=== PATIENT | male | born 1960 | race Caucasian/White ===

== ENCOUNTER → 2018-01-26 | Day surgery (SDC) | payer BC ==
[2018-01-24 15:49] LABS: BASOPHILS # (AUTO) 0.1 (0.0-0.1); BASOPHILS % 0.5 % (0.0-1.0); EOSINOPHILS # (AUTO) 0.3 (0.0-0.4); EOSINOPHILS % 1.9 % (0.0-6.0); HEMATOCRIT 46.6 % (38.2-49.6); LYMPHOCYTES # (AUTO) 6.2 (1.0-3.2); LYMPHOCYTES % 38.6 % (18.0-39.1); MEAN CORPUSCULAR HEMOGLOBIN 29.2 pg (28-32); MEAN CORPUSCULAR HGB CONC 34.3 g/dL (31-35); MONOCYTES # (AUTO) 1.4 (0.2-0.8); MONOCYTES % 8.5 % (4.4-11.3); NEUTROPHILS # (AUTO) 8.1 (2.1-6.9); NEUTROPHILS % 50.2 % (38.7-80.0); PLATELET COUNT 318 x10e3/uL (140-360); RED BLOOD COUNT 5.48 x10e6/uL (4.3-5.7); RED CELL DISTRIBUTION WIDTH 13.2 % (11.7-14.4)
[2018-01-24 16:47] LABS: LYMPHOCYTES % (MANUAL) 30 % (19-48); MONOCYTES % (MANUAL) 2 % (3.4-9.0); NEUTROPHILS % (MANUAL) 63 % (40-74); PLATELET ESTIMATE ADEQUATE; PLATELET MORPHOLOGY COMMENT NORMAL; RBC MORPHOLOGY COMMENT NORMAL
[~2018-01-26] MED LIST: ALBUTEROL SULFATE HFA 8GM INHALATION AEROSOL INH ONE; ALBUTEROL0.63 MG/3; ASPIRIN81 MG; ATORVASTATIN CA20 MG PO; BENZOCAINE/TETRACAINE/BUTAMBEN AERO SPRAY 56 GM CAN ONE; BRILINTA90 MG; FENTANYL CITRATE/PF 100MCG/2 ML INJ ONE; GEMFIBROZIL600 MG; HYOSCYAMINE SULFATE 0.5 MG/ML AMP ONE; IPRATROPIU0.2 MG/1 M NEB; KETAMINE HCL INJ 50 MG/ML 10 ML VIAL ONE; LIDOCAINE HCL 2% LOCAL INJ 5 ML SDV VIAL INJ ONE; LISINOPRIL-HCT1 EAC2; METOCLOPRAMIDE HCL 10 MG/2ML VIAL ONE; MIDAZOLAM HCL 2 MG/2 ML VIAL ONE; MUCINEX DM ER1 EACH PO; OMEPRAZOLE40 MG; PHENYLEPHRINE HCL 1% 10 MG/ML VIAL ONE; PREDNISONE20 MG PO; PROPOFOL IV EMULSION 10 MG/ML 50 ML VIAL ONE; SIMETHICONE 40 MG/0.6 ML BTL ONE; SYMBICORT 16010.2 GM
--- NOTE | 2018-01-26 07:57 | Diagnostic Imaging Report ---
PROCEDURE: Frontal and lateral views of the chest. COMPARISON: None. INDICATIONS: PREOPERATIVE CHEST XRAY FOR COLONOSCOPY/EGD FINDINGS: Lines/tubes: None. Lungs: Low lung volumes, which may account for mid interstitial opacities, left greater than right. No evidence of pneumonia. Pleura: There is no pleural effusion or pneumothorax. Heart and mediastinum: The cardiomediastinal silhouette is unremarkable. Bones: No acute bony abnormality. IMPRESSION: Mild interstitial opacities which likely reflect low lung volumes. Mild interstitial edema is possible in the appropriate clinical context. No evidence of pneumonia. Dictated by: ANGELICA ARTEAGA M.D. on 01/26/2018 at 8:02 Electronically approved by: ANGELICA ARTEAGA M.D. on 01/26/2018 at 8:02
--- NOTE | 2018-01-26 12:24 | Operative Report ---
DATE OF PROCEDURE: January 26, 2018 REFERRING PHYSICIAN: Dr. Demarco Lawton. PROCEDURES PERFORMED: 1. Esophagogastroduodenoscopy with esophageal dilatation biopsies. 2. Colonoscopy with polypectomy. INDICATIONS FOR ESOPHAGOGASTRODUODENOSCOPY: Dysphagia, retrosternal chest pain. INDICATIONS FOR COLONOSCOPY: Colorectal cancer screening, personal history of colon polyps. MEDICATION: Patient was done under MAC. Please see anesthesiologist's note. PROCEDURE: With patient in the left lateral decubitus position, the flexible fiberoptic Olympus gastroscope was introduced into the esophagus under direct visualization without any difficulty. There was some patchy erythema noted in the distal esophagus. The esophagus was dilated to a size 52-Slovenian Brannon. The scope was then advanced with ease into the stomach, and mucosa overlying the antrum and the body revealed some patchy erythema and mild to moderate edema, and biopsies were obtained and sent to stain for H. pylori. The pylorus was of normal contour and shape, was intubated with ease, and the scope was advanced all the way to the 2nd portion of the duodenum. The scope was then withdrawn slowly. Mucosa overlying the proximal 2nd portion and the duodenal bulb appeared to be within normal limits. The scope was then withdrawn back into the stomach and retroflexed, and the mucosa overlying the fundus and the cardia appeared to be within normal limits. The scope was then straightened out. The stomach was decompressed. The scope was subsequently withdrawn. Patient tolerated the procedure well. IMPRESSION: 1. Distal esophagitis, mild. 2. Esophagus dilated to a size 52-Slovenian Brannon. 3. Gastritis biopsied. Biopsies sent to stain for H. pylori. PLAN: Follow up histology. Increase omeprazole to 40 mg 1 p.o. a.c. b.i.d. Patient was then turned around and after adequate lubrication of the anal canal, a flexible fiberoptic Olympus colonoscope was inserted into the rectum with ease and advanced all the way to the cecum. It was then withdrawn slowly. One polyp was hot biopsied from the cecum. The ascending colon appeared to be within normal limits. Five polyps were hot biopsied and three polyps were snared from the transverse colon. Two polyps were snared, two polyps were hot biopsied from the descending colon. One polyp was snared, six polyps were hot biopsied from the sigmoid colon. Six polyps were hot biopsied from the rectum. The scope was then retroflexed into the distal rectum and moderate-sized internal hemorrhoids were noted, none of which was actively bleeding. The scope was then straightened out. It was subsequently withdrawn. Patient tolerated the procedure well. IMPRESSION: 1. Cecal polyp hot biopsied. 2. Transverse colon polyps, 3 snared and hot biopsied x5. 3. Descending colon polyps, 2 snared and 2 hot biopsied. 4. Sigmoid colon polyps, 1 snared and 6 hot biopsied. 5. Rectal polyps, 6 hot biopsied. 6. Internal hemorrhoids, none actively bleeding. PLAN: Follow up histology. Patient will need a colonoscopy in six months to a year as a total of 26 polyps were removed. Job#: [id number] EV cc:DEMARCO LAWTON M.D.
== END | disposition home or self-care (01) ==
LOC: OR 06:17
PROVIDERS: ATTEND Internal Medicine Gastroenterology
DX: Z12.11 Encounter for screening for malignant neoplasm of colon (principal); D12.3 Benign neoplasm of transverse colon; D12.4 Benign neoplasm of descending colon; D12.5 Benign neoplasm of sigmoid colon; D12.8 Benign neoplasm of rectum; K29.70 Gastritis, unspecified, without bleeding; K20.9 Esophagitis, unspecified; K59.00 Constipation, unspecified; K64.8 Other hemorrhoids; J44.9 Chronic obstructive pulmonary disease, unspecified; G47.33 Obstructive sleep apnea (adult) (pediatric); I25.10 Atherosclerotic heart disease of native coronary artery without angina pectoris; I10 Essential (primary) hypertension; F17.210 Nicotine dependence, cigarettes, uncomplicated; Z01.810 Encounter for preprocedural cardiovascular examination; Z01.812 Encounter for preprocedural laboratory examination; Z79.82 Long term (current) use of aspirin; Z68.41 Body mass index [BMI] 40.0-44.9, adult; Z95.5 Presence of coronary angioplasty implant and graft; Z80.0 Family history of malignant neoplasm of digestive organs
CPT/HCPCS: 36415; 43239; 43450; 45384; 45385; 71046; 85025; 93005; J1980; J2001; J2250; J2370; J2765; 45378

== ENCOUNTER 2018-02-08 18:28 | Inpatient (IN) | payer BC ==
[~2018-02-08] VITALS: Ht 172.7 cm; Wt 115.4 kg
[2018-02-08] MEDS ORDERED: PREDNISONE20 MG PO (19:23)
[2018-02-08 19:35] LABS: BASOPHILS # (AUTO) 0.1 (0.0-0.1); BASOPHILS % 0.4 % (0.0-1.0); EOSINOPHILS # (AUTO) 0.2 (0.0-0.4); EOSINOPHILS % 1.6 % (0.0-6.0); HEMATOCRIT 46.4 % (38.2-49.6); LYMPHOCYTES # (AUTO) 6.1 (1.0-3.2); LYMPHOCYTES % 39.8 % (18.0-39.1); MEAN CORPUSCULAR HGB CONC 34.5 g/dL (31-35); MEAN CORPUSCULAR VOLUME 84.2 fL (81-99); MONOCYTES # (AUTO) 1.2 (0.2-0.8); NEUTROPHILS # (AUTO) 7.6 (2.1-6.9); NEUTROPHILS % 49.8 % (38.7-80.0); PLATELET COUNT 419 x10e3/uL (140-360); RED BLOOD COUNT 5.51 x10e6/uL (4.3-5.7)
[2018-02-08 19:43] LABS: INR 0.98; PROTHROMBIN TIME 12.2 seconds (11.9-14.5)
[2018-02-08 19:44] LABS: PARTIAL THROMBOPLASTIN TIME 24.5 seconds (23.8-35.5)
[2018-02-08 19:54] LABS: ALANINE AMINOTRANSFERASE 21 IU/L (0-55); ALBUMIN 3.9 g/dL (3.5-5.0); ALBUMIN/GLOBULIN RATIO 1.4 (0.8-2.0); ALKALINE PHOSPHATASE 84 IU/L (40-150); AMYLASE 38 U/L (25-125); ANION GAP 17.1 mmol/L (8-16); BLOOD UREA NITROGEN 20 mg/dL (7-26); BUN/CREATININE RATIO 21 (6-25); CALCIUM 9.8 mg/dL (8.4-10.2); CARBON DIOXIDE 19 mmol/L (22-29); CHLORIDE 106 mmol/L (98-107); CREATINE KINASE 70 IU/L (30-200); CREATININE, SERUM 0.96 mg/dL (0.72-1.25); EST GLOMERULAR FILTRATION RATE > 60 ML/MIN (60-); GLUCOSE 218 mg/dL (74-118); LIPASE 25 U/L (8-78); POTASSIUM 4.1 mmol/L (3.5-5.1); SODIUM 138 mmol/L (136-145)
[2018-02-08] MEDS ORDERED: ASPIRIN 81 MG CHEW TAB PO ONE (20:15)
[2018-02-08] MEDS ORDERED: ONDANSETRON HCL INJ 2 MG/ML VIAL IV PRN (20:15)
[2018-02-08] MEDS ORDERED: LEVOFLOXACIN 500MG/D5W 100ML 100 ML IV ONE (20:29)
[2018-02-08] MEDS ORDERED: SODIUM CHLORIDE 0.9% 1000ML 1,000 ML ONE (20:29)
[2018-02-08] MEDS: SODIUM CHLORIDE 0.9% 1000ML 1,000 ML IV SCH (20:44)
[2018-02-08] MEDS: LEVOFLOXACIN 500MG/D5W 100ML IV SCH (20:44)
[2018-02-08] MEDS ORDERED: KETOROLAC TROMETHAMINE 30 MG/ML VIAL IV STA (21:07)
[2018-02-08] MEDS ORDERED: ACETAMINOPHEN/CODEINE 300MG - 30MG TAB PO PRN (21:15)
[2018-02-08 21:30] VITALS: BP 162/81
[2018-02-08 21:33] LABS: LYMPHOCYTES % (MANUAL) 23 % (19-48); MONOCYTES % (MANUAL) 3 % (3.4-9.0); NEUTROPHILS % (MANUAL) 67 % (40-74); PLATELET ESTIMATE SLIGHTLY INCREASED; PLATELET MORPHOLOGY COMMENT NORMAL; RBC MORPHOLOGY COMMENT NORMAL
[2018-02-09] VITALS (8 sets, daily range): BP systolic 126–167; BP diastolic 69–84
[2018-02-09] MEDS: METRONIDAZOLE 500MG/NS 100ML 100 ML IV SCH ×4 (00:34→17:55)
[2018-02-09 05:00] LABS: BASOPHILS # (AUTO) 0.1 (0.0-0.1); BASOPHILS % 0.6 % (0.0-1.0); EOSINOPHILS # (AUTO) 0.2 (0.0-0.4); EOSINOPHILS % 1.7 % (0.0-6.0); HEMATOCRIT 42.9 % (38.2-49.6); HEMOGLOBIN 14.8 g/dL (14.0-18.0); LYMPHOCYTES # (AUTO) 6.1 (1.0-3.2); LYMPHOCYTES % 44.7 % (18.0-39.1); MEAN CORPUSCULAR HEMOGLOBIN 29.4 pg (28-32); MEAN CORPUSCULAR HGB CONC 34.5 g/dL (31-35); MEAN CORPUSCULAR VOLUME 85.1 fL (81-99); MONOCYTES # (AUTO) 1.3 (0.2-0.8); MONOCYTES % 9.7 % (4.4-11.3); NEUTROPHILS # (AUTO) 5.8 (2.1-6.9); NEUTROPHILS % 42.9 % (38.7-80.0); PLATELET COUNT 322 x10e3/uL (140-360); RED BLOOD COUNT 5.04 x10e6/uL (4.3-5.7); RED CELL DISTRIBUTION WIDTH 13.2 % (11.7-14.4)
[2018-02-09 05:31] LABS: ALANINE AMINOTRANSFERASE 17 IU/L (0-55); ALBUMIN 3.3 g/dL (3.5-5.0); ALBUMIN/GLOBULIN RATIO 1.4 (0.8-2.0); ALKALINE PHOSPHATASE 72 IU/L (40-150); ANION GAP 13.2 mmol/L (8-16); BLOOD UREA NITROGEN 20 mg/dL (7-26); BUN/CREATININE RATIO 27 (6-25); CALCIUM 9.2 mg/dL (8.4-10.2); CARBON DIOXIDE 22 mmol/L (22-29); CHLORIDE 106 mmol/L (98-107); CREATININE, SERUM 0.74 mg/dL (0.72-1.25); EST GLOMERULAR FILTRATION RATE > 60 ML/MIN (60-); GLUCOSE 134 mg/dL (74-118); POTASSIUM 4.2 mmol/L (3.5-5.1); SODIUM 137 mmol/L (136-145)
[2018-02-09 05:36] LABS: CREATINE KINASE MB 1.1 ng/mL (0-5.0)
[2018-02-09 06:43] LABS: EOSINOPHILS % (MANUAL) 5 % (0-7); LYMPHOCYTES % (MANUAL) 40 % (19-48); MONOCYTES % (MANUAL) 9 % (3.4-9.0); NEUTROPHILS % (MANUAL) 45 % (40-74)
[2018-02-09 06:44] LABS: PLATELET ESTIMATE ADEQUATE; PLATELET MORPHOLOGY COMMENT NORMAL; RBC MORPHOLOGY COMMENT NORMAL
[2018-02-09] MEDS: SODIUM CHLORIDE 0.9% 1000ML 1,000 ML IV SCH (09:27)
[2018-02-09 14:48] LABS: CREATINE KINASE MB 1.6 ng/mL (0-5.0)
[2018-02-09] MEDS: LEVOFLOXACIN 500MG/D5W 100ML IV SCH (20:27)
[2018-02-09] MEDS ORDERED: NITROGLYCERIN 0.4 MG SUBL SL PRN (21:00)
--- NOTE | 2018-02-09 23:06 | Consultation ---
DATE OF CONSULTATION: February 09, 2018 CARDIOLOGY CONSULTATION REASON FOR CONSULTATION: Chest pain. CHIEF COMPLAINT: Bright red blood per rectum. HISTORY OF PRESENT ILLNESS: Patient is a 57-year-old man with history of known coronary artery disease and chronic stable angina. Patient says that he has had exertional chest pain that feels like a pressure in his chest that is debilitating and relieved by rest for past several years. He follows a deck builder and has had several stents placed in the past, most recently about 2 or 3 months ago. Since then, he has seen his deck builder and has been told that his chest pains that are likely noncardiac in origin. Most recently, he underwent colonoscopy with polypectomy done by GI. He was recovering well from this up until yesterday when he used the restroom and noticed bright red blood per rectum. He has had several episodes throughout the day today up until this afternoon. Denies any dizziness or passing out. Denies any melena. Has never taken nitroglycerin for his chest pains, but does report that they improve with rest. Also has history of interstitial lung disease for which he used to follow a roentgenologist, but does not any longer as he says he was told that nothing can be done for this. REVIEW OF SYSTEMS: As above, otherwise negative. PAST MEDICAL HISTORY: 1. Coronary disease, status post multiple stents. 2. Colon polyps. 3. Gastroesophageal reflux disease. 4. Gastritis. 5. Interstitial lung disease. SOCIAL HISTORY: Patient does not smoke, drink alcohol or do drugs. FAMILY HISTORY: No family history of early CAD or sudden cardiac . OBJECTIVE: VITAL SIGNS: Temperature 97.3, pulse 71, respiratory rate 18, blood pressure 152/84, satting 96% on room air. GENERAL: Obese white man in no acute distress. CARDIOVASCULAR: Regular rate and rhythm. PMI nondisplaced. No murmurs, rubs or gallops. Palpable carotid pulses. Palpable radial pulses. Palpable pedal pulses. LUNGS: Clear to auscultation bilaterally. No respiratory distress. ABDOMEN: Soft, nontender, obese. No masses. NEURO AND PSYCH: Alert and oriented to person, place and time. Normal affect. LABORATORY DATA: Reviewed. Cardiac enzymes negative times 2. Elevated white count of 14 today. IMAGING DATA: Reviewed. Gallbladder scan possibly suggestive of chronic cholecystitis. Chest x-ray is normal. TELEMETRY: Shows normal sinus rhythm. EKG: Shows normal sinus rhythm, no acute ST-T changes. ASSESSMENT: 1. Typical chest pain. 2. Bright red blood per rectum. 3. Leukocytosis. 4. History of interstitial lung disease. 5. History of coronary artery disease, status post stents. PLAN: He has very typical, but chronic chest pains. Currently being managed medically by his outpatient deck builder. Will review images of his outpatient cardiac catheterization and discussed with patient if there is any possibility of any further interventions, given bright red blood per rectum, no plans for any invasive cardiovascular procedures during this hospitalization. Patient can follow up as an outpatient with his own deck builder or with our office if further procedures are planned at that time once GI bleeding improves. Thank you for the consult. Will continue to follow. Job#: [id number] WHITNEY
[2018-02-10] MEDS: SODIUM CHLORIDE 0.9% 1000ML 1,000 ML IV SCH (00:55)
[2018-02-10] MEDS: METRONIDAZOLE 500MG/NS 100ML 100 ML IV SCH ×3 (00:55→12:45)
[2018-02-10 00:56] VITALS: BP 193/93
[2018-02-10 05:02] LABS: BASOPHILS # (AUTO) 0.1 (0.0-0.1); BASOPHILS % 0.5 % (0.0-1.0); EOSINOPHILS # (AUTO) 0.2 (0.0-0.4); HEMATOCRIT 41.4 % (38.2-49.6); HEMOGLOBIN 14.1 g/dL (14.0-18.0); LYMPHOCYTES # (AUTO) 5.8 (1.0-3.2); LYMPHOCYTES % 47.2 % (18.0-39.1); MEAN CORPUSCULAR HEMOGLOBIN 28.8 pg (28-32); MEAN CORPUSCULAR HGB CONC 34.1 g/dL (31-35); MEAN CORPUSCULAR VOLUME 84.7 fL (81-99); MONOCYTES # (AUTO) 1.1 (0.2-0.8); MONOCYTES % 8.7 % (4.4-11.3); NEUTROPHILS % 41.2 % (38.7-80.0); PLATELET COUNT 269 x10e3/uL (140-360); RED BLOOD COUNT 4.89 x10e6/uL (4.3-5.7)
[2018-02-10 05:17] VITALS: BP 163/88
[2018-02-10 07:08] LABS: ANISOCYTOSIS SLIGHT; LYMPHOCYTES % (MANUAL) 46 % (19-48); MONOCYTES % (MANUAL) 9 % (3.4-9.0); NEUTROPHILS % (MANUAL) 39 % (40-74); PLATELET ESTIMATE ADEQUATE; PLATELET MORPHOLOGY COMMENT NORMAL; RBC MORPHOLOGY COMMENT NORMAL
[2018-02-10 08:00] VITALS: BP 155/90
--- NOTE | 2018-02-10 16:46 | Progress Note ---
DATE: February 10, 2018 CARDIOLOGY PROGRESS NOTE SUBJECTIVE: No major events overnight. No more bright red blood per rectum. He had an episode of chest pain overnight and took sublingual nitroglycerin without any changes other than getting a headache afterwards. REVIEW OF SYSTEMS: As above, otherwise negative. OBJECTIVE VITAL SIGNS: Temperature 97.1, pulse 74, respiratory rate 18, blood pressure 155/90, satting 96% on room air. GENERAL: A well-developed, obese white man in no acute distress. CARDIOVASCULAR: Regular rate and rhythm. No murmurs, rubs or gallops. PMI nondisplaced. Palpable carotid pulses. Palpable radial pulses. Palpable pedal pulses. LUNGS: Clear to auscultation bilaterally. No respiratory distress. ABDOMEN: Soft and nontender, obese. No masses. NEURO AND PSYCH: Alert and oriented to person, place and time. Normal affect. MEDICATIONS: Reviewed. LABORATORY DATA: Reviewed. IMAGING: Reviewed. ASSESSMENT 1. Chest pain. 2. Bright red blood per rectum. 3. Leukocytosis. 4. History of interstitial lung disease. 5. History of coronary artery disease, status post stenting. PLAN: He is typical for chronic chest pain. I reviewed his coronary angiogram performed at outside hospital earlier this year when he received PCI to proximal circumflex at that time. No significant residual disease seen on catheterization. Says his chest pain is chronic and he has had it for many years with no significant changes with his PCIs. He has already been ruled out for acute DE. I do not recommend any further workup at this time. Continue medical therapy and receptor control. He can follow up as an outpatient with his outside crystallographer. Recommend resuming his dual antiplatelet therapy now that his bleeding has stopped. Given that he has had a stent about 4 months ago this year, he should at least be on aspirin 81 mg daily. The patient is okay to be discharged from a cardiovascular standpoint. Thank you for this consult. We will continue to follow. Job#: [id number]
== END 2018-02-10 17:43 | disposition home or self-care (01) | DRG 378 ==
LOC: ER 18:28 → ERHOLD 20:13 → MED/SURG2 21:16
PROVIDERS: ADMIT Internal Medicine; ATTEND Internal Medicine
DX: K92.1 Melena (principal); J84.9 Interstitial pulmonary disease, unspecified; R07.89 Other chest pain; K29.70 Gastritis, unspecified, without bleeding; K21.9 Gastro-esophageal reflux disease without esophagitis; J98.9 Respiratory disorder, unspecified; K76.0 Fatty (change of) liver, not elsewhere classified; I25.10 Atherosclerotic heart disease of native coronary artery without angina pectoris; Z95.5 Presence of coronary angioplasty implant and graft; E66.9 Obesity, unspecified; Z68.38 Body mass index [BMI] 38.0-38.9, adult
CPT/HCPCS: 36415; 80053; 82150; 82270; 82550; 82553; 83690; 84484; 85025; 85610; 85730; 93005; 99284; J1885; J1956; J7030

== ENCOUNTER → 2018-02-08 | Outpatient (CLI) | payer BC ==
[~2018-02-08] MED LIST changes: -ALBUTEROL SULFATE HFA 8GM INHALATION AEROSOL INH ONE; -BENZOCAINE/TETRACAINE/BUTAMBEN AERO SPRAY 56 GM CAN ONE; -FENTANYL CITRATE/PF 100MCG/2 ML INJ ONE; -HYOSCYAMINE SULFATE 0.5 MG/ML AMP ONE; -KETAMINE HCL INJ 50 MG/ML 10 ML VIAL ONE; -LIDOCAINE HCL 2% LOCAL INJ 5 ML SDV VIAL INJ ONE; -METOCLOPRAMIDE HCL 10 MG/2ML VIAL ONE; -MIDAZOLAM HCL 2 MG/2 ML VIAL ONE; -PHENYLEPHRINE HCL 1% 10 MG/ML VIAL ONE; -PROPOFOL IV EMULSION 10 MG/ML 50 ML VIAL ONE; -SIMETHICONE 40 MG/0.6 ML BTL ONE
--- NOTE | 2018-02-08 11:59 | Diagnostic Imaging Report ---
PROCEDURE:US GALLBLADDER COMPARISON:None. INDICATIONS:EPIGASTRIC, RUQ PAIN TECHNIQUE: Wyatt-scale and color doppler transverse and longitudinal images of the right upper quadrant of the abdomen were obtained. FINDINGS: Limited examination due to patient body habitus Liver: 15.5 cm in right mid-clavicular line. Increased echogenicity. No masses. Main portal vein: 1.0 cm, normal, with normally directed flow Gallbladder: No stones, wall thickening, or pericholecystic fluid Common Bile Duct: 0.4 cm Sonographic Fernando's sign: Negative Right kidney: 13.9 cm. Normal echogenicity. No solid masses or hydronephrosis. 1.6 x 1.3 x 1.4 cm hypoechoic lesion in the right kidney. Pancreas: The pancreas is nonvisualized due to overlying bowel gas Inferior vena cava: Patent Aorta: Proximal portions of the aorta are not visualized due to overlying bowel gas Ascites: None in the right upper quadrant of the abdomen. CONCLUSION: No specific gallbladder abnormality. No cholelithiasis or acute cholecystitis. Diffuse hepatic steatosis. 1.6 cm hypoechoic lesion in the right kidney may represent a complex cyst. Recommend followup ultrasound in 6 months to ensure stability. Dictated by: Ziyad Ayers M.D. on 02/08/2018 at 12:04 Electronically approved by: Ziyad Ayers M.D. on 02/08/2018 at 12:04
--- NOTE | 2018-02-08 20:53 | Diagnostic Imaging Report ---
Hepatobiliary Scan with Gallbladder Ejection Fraction Clinical information: 57 M with epigastric pain that radiates to the back and shoulder. Technique: Following intravenous administration of 7.0 millicuries of Tc-99m mebrofenin, dynamic images of the abdomen in the anterior projection were obtained through 36 minutes. Sincalide (CCK analog) 2.6 micrograms was administered intravenously over 30 minutes with additional imaging for determination of gallbladder ejection fraction. Discussion: Perfusion of the liver is normal. Extraction of tracer by the liver parenchyma is normal. Tracer appears promptly within the biliary tract. The gallbladder begins to fill at 9 minutes post injection of tracer and fills adequately. Tracer is seen in the small bowel by during the sincalide infusion. There is no contractile response by the gallbladder to the pharmacologic dose of sincalide. No emptying of the gallbladder occurs during the 30 minute infusion. Impression: 1. Filling of the gallbladder excludes acute cystic duct obstruction/acute cholecystitis. 2. The gallbladder ejection fraction is undefined as there is no emptying of the gallbladder during the infusion of sincalide. This absence of a contractile response to sincalide supports the clinical diagnosis of chronic cholecystitis/gallbladder dyskinesia. Signed by: Dr. Bernadette King M.D. on 02/08/2018 8:50 PM
== END ==
LOC: US 10:16
PROVIDERS: ATTEND Internal Medicine Gastroenterology
DX: R10.13 Epigastric pain (principal); R10.11 Right upper quadrant pain
CPT/HCPCS: 76705; 78227; A9537

== ENCOUNTER → 2018-06-09 | Outpatient (CLI) | payer BC ==
--- NOTE | 2018-06-09 10:22 | Diagnostic Imaging Report ---
PROCEDURE: SMALL BOWEL SERIES COMPARISON: None. INDICATIONS: MULTIPLE COLON POLYPS, CONSTIPATION. R/O NEOPLASM FINDINGS: The patient was given barium to drink and sequential images of the abdomen were obtained through 90 minutes. Spot images of the small bowel and terminal ileum were then obtained. A preliminary KUB reveals a right common iliac artery stent. Small bowel motility and caliber are normal. There is no evidence of mass or mucosal abnormality. The terminal ileum is normal. Fluoroscopy time: 0.9 minutes Total dose: 57.723 mGy CONCLUSION: Normal small bowel follow-through. Neri Callahan D.O. Dictated by: Neri Callahan D.O. on 06/09/2018 at 10:33 Electronically approved by: Neri Callahan D.O. on 06/09/2018 at 10:33
== END ==
LOC: DX 06:16
PROVIDERS: ATTEND Internal Medicine Gastroenterology
DX: Z12.11 Encounter for screening for malignant neoplasm of colon (principal); K59.00 Constipation, unspecified
CPT/HCPCS: 74250

== ENCOUNTER → 2020-11-13 | Outpatient (CLI) | payer BC | LOC: NM 10:39 | PROVIDERS: ATTEND Internal Medicine | DX: E21.3 Hyperparathyroidism, unspecified (principal) | CPT/HCPCS: 78071; A9500 ==